=== PATIENT | female | born 1985 | race Two or more races ===

== ENCOUNTER 2019-11-07 20:43 | Observation (INO) | payer MEDICAID, OTHER ==
[~2019-11-07] VITALS: Ht 167.6 cm; Wt 81.6 kg
[2019-11-07] MEDS ORDERED: SODIUM CHLORIDE 0.9% 1,000 ML IV SCH ×2 (21:01→21:10)
[2019-11-07] MEDS ORDERED: PREN-96 PO (21:01)
[2019-11-07] MEDS ORDERED: LABETALOL HCL 5 MG/ML 4ML SYRINGE IV ONE ×2 (21:03→21:45)
[2019-11-07] MEDS ORDERED: MAGNESIUM SULFATE 40MG/ML 1,000 ML IV SCH (21:10)
[2019-11-07] MEDS ORDERED: MAGNESIUM SULFATE 100 ML IV ONE ×2 (21:15→21:17)
[2019-11-07] MEDS ORDERED: LABETALOL HCL 5 MG/ML 4ML SYRINGE IV PRN ×3 (21:15→21:30)
[2019-11-07] MEDS ORDERED: hydrALAZINE HCL 20 MG/ML VL IV PRN (21:15)
[2019-11-07 22:13] LABS: Basophils # (auto) 0 10 ^3/uL (0-0.2); Basophils % (auto) 0.1 % (0.0-2.0); Eosinophils # (auto) 0.1 10 ^3/uL (0-0.8); Eosinophils % (auto) 0.5 % (0.0-7.0); Hemoglobin 12.5 g/dL (12.2-16.2); Lymphocytes # (auto) 2.3 10 ^3/uL (0.4-5.4); Lymphocytes % (auto) 21.2 % (10.0-50.0); Mean Corpuscular Hemoglobin 32.6 pg (28.0-32.0); Mean Corpuscular Hgb Conc. 33.9 g/dL (32.0-36.0); Mean Corpuscular Volume 96.3 fL (80.0-100.0); Monocytes # (auto) 0.8 10 ^3/uL (0-1.3); Monocytes % (auto) 7.7 % (0.0-12.0); Neutrophils # (auto) 7.7 10 ^3/uL (1.6-8.6); Neutrophils % (auto) 70.5 % (37.0-80.0); Nucleated Red Blood Cells % 0.1 %; Platelet Count (auto) 110 10^3/uL (140-450); Red Blood Cells 3.84 10^6/uL (4.0-5.20)
[2019-11-07 22:30] LABS: Urine Bacteria FEW /hpf (None Seen); Urine Blood TRACE /uL (Negative); Urine Mucus FEW (None Seen); Urine Specific Gravity 1.021 (1.001-1.035); Urine WBC 1 /hpf (0 - 5)
[2019-11-07 22:32] LABS: Alcohol, Urine < 3.0 mg/dL (0-10); Amphetamine Screen, Urine NEGATIVE (NEGATIVE); Barbiturate Scree,Urine NEGATIVE (NEGATIVE); Benzodiazephine Screen, Urine NEGATIVE (NEGATIVE); Cannabinoid Screen, Urine NEGATIVE (NEGATIVE); Cocaine Screen, Urine NEGATIVE (NEGATIVE); Opiate Scree,Urine NEGATIVE (NEGATIVE); Phencyclidine Screen, Urine NEGATIVE (NEGATIVE)
[2019-11-07 22:32] LABS: Albumin 2.5 g/dL (3.4-5.0); Calcium 8.6 mg/dL (8.5-10.1); Potassium 3.9 mmol/L (3.5-5.1)
[2019-11-07 22:35] LABS: Protein, Urine 94.2 mg/dL (0.0-11.9)
[2019-11-07 22:35] LABS: BUN/Creatinine Ratio 22.8; Bilirubin, Total 0.4 mg/dL (0.2-1.0); Total Protein 6.5 g/dL (6.4-8.2); Uric Acid 4.4 mg/dL (2.6-6.0)
[2019-11-07 22:45] LABS: INR 0.96 (0.9-1.15); Partial Thromboplastin Time 25.9 sec (23.0-31.2)
[2019-11-08] MEDS ORDERED: ACETAMINOPHEN 325 MG TAB PO ONE (01:15)
[2019-11-08] MEDS ORDERED: LABETALOL HCL 5 MG/ML 4ML SYRINGE IV PRN (06:45)
== END 2019-11-08 09:22 | disposition short-term general hospital (02) ==
LOC: LDRP 20:43
PROVIDERS: ADMIT Obstetrics & Gynecology; ATTEND Obstetrics & Gynecology
DX: O13.3 Gestational [pregnancy-induced] hypertension without significant proteinuria, third trimester (principal); O26.893 Other specified pregnancy related conditions, third trimester; R10.13 Epigastric pain; O24.415 Gestational diabetes mellitus in pregnancy, controlled by oral hypoglycemic drugs; O62.9 Abnormality of forces of labor, unspecified; Z3A.49 Greater than 42 weeks gestation of pregnancy; Z79.899 Other long term (current) drug therapy
CPT/HCPCS: 36415; 59025; 76805; 76818; 80053; 80307; 81001; 81002; 82570; 82962; 83615; 83735; 84156; 84550; 85025; 85362; 85379; 85384; 85610; 85730; 86850; 86900; 86901; 96361; 96365; 96366; 96367; 96375; 96376; G0378; J3475; J3490; J7030; 96360; 96374

== ENCOUNTER 2022-05-29 20:49 | Emergency (ER) | payer MEDICAID ==
[~2022-05-29] VITALS: Ht 167.6 cm; Wt 82.3 kg
[~2022-05-29 20:49] MED LIST: PREN-96 PO
[2022-05-29 22:12] VITALS: BP 139/96
[2022-05-29] MEDS ORDERED: KETOROLAC TROMETH 60MG/2ML VIAL IM ONE (23:00)
[2022-05-29] MEDS ORDERED: ACETAMINOPHEN 500 MG TAB PO ONE (23:00)
[2022-05-29] MEDS ORDERED: LORATADINE 10 MG TAB PO ONE (23:00)
[2022-05-30] MEDS ORDERED: PREN-96 PO (00:06)
[2022-05-30] MEDS ORDERED: LORA10CA7 PO (01:12)
[2022-05-30] MEDS ORDERED: ACET-1158 PO (01:12)
[2022-05-30] MEDS ORDERED: BENZ100C19 PO (01:12)
== END 2022-05-30 01:58 | disposition home or self-care (01) ==
LOC: ER 20:49
DX: J06.9 Acute upper respiratory infection, unspecified (principal); Z20.822 Contact with and (suspected) exposure to COVID-19
CPT/HCPCS: 36415; 87426; 87804; 96372; 99283; J1885

== ENCOUNTER 2024-02-02 15:55 | Inpatient (IN) | payer MEDICAID ==
[~2024-02-02] VITALS: Ht 165.1 cm; Wt 81.4 kg
[~2024-02-02 15:55] MED LIST changes: +ACET500T58 PO; +BENZ100C19 PO; +LORA10CA PO
[2024-02-02 17:12] LABS: Basophils # (auto) 0 10 ^3/uL (0-0.2); Basophils % (auto) 0.4 % (0.0-2.0); Eosinophils # (auto) 0.1 10 ^3/uL (0-0.8); Eosinophils % (auto) 0.9 % (0.0-7.0); Hematocrit 45.6 % (36.0-46.0); Hemoglobin 15.5 g/dL (12.2-16.2); Lymphocytes % (auto) 43.1 % (10.0-50.0); Mean Corpuscular Hemoglobin 31.1 pg (28.0-32.0); Mean Corpuscular Hgb Conc. 33.9 g/dL (32.0-36.0); Mean Corpuscular Volume 91.5 fL (80.0-100.0); Monocytes # (auto) 0.4 10 ^3/uL (0-1.3); Monocytes % (auto) 6.3 % (0.0-12.0); Neutrophils # (auto) 3.4 10 ^3/uL (1.6-8.6); Neutrophils % (auto) 49.3 % (37.0-80.0); Platelet Count (auto) 271 10^3/uL (140-450); Red Blood Cells 4.98 10^6/uL (4.0-5.20); Red Cell Distribution Width 12.8 % (11.8-14.3); White Blood Cell 6.9 10^3/uL (4.4-10.8)
[2024-02-02 17:44] LABS: Alanine Aminotransferase 13 U/L (7-40); Albumin 4.6 g/dL (3.2-4.8); Alkaline Phosphatase 81 U/L (46-116); Anion Gap 5 (5-15); BUN/Creatinine Ratio 16.9 (10.0-20.0); Bilirubin, Total 0.4 mg/dL (0.2-1.0); Blood Urea Nitrogen 14 mg/dL (9-23); Calcium 9.8 mg/dL (8.7-10.4); Carbon Dioxide 28 mmol/L (20-31); Chloride 106 mmol/L (98-107); Potassium 4.1 mmol/L (3.5-5.1); Sodium 139 mmol/L (136-145); Total Protein 7.7 g/dL (5.7-8.2)
[2024-02-02 17:57] LABS: Aspartate Aminotransferase < 8 U/L (13-40); Glucose 114 mg/dL (74-106)
[2024-02-02 18:09] LABS: Urine Bacteria None Seen /hpf (None Seen)
[2024-02-02 18:17] LABS: Lipase 33 U/L (12-53)
[2024-02-02 18:34] LABS: Urine Blood 1+ /uL (Negative); Urine Clarity Clear (Clear); Urine Color Light-Yellow (Yellow); Urine Mucus FEW (None Seen); Urine Protein, UAD Negative (Negative); Urine Specific Gravity 1.029 (1.001-1.035); Urine Urobilinogen Normal (Negative); Urine WBC 2 /hpf (0 - 5)
--- NOTE | 2024-02-02 19:33 | DVH ---
Procedure: US GALLBLADDER 02/02/2024 07:05 PM Indication: ruq pain Comparison: None Technique: Grayscale and color images of the right upper quadrant were obtained. FINDINGS: ASCITES: None. LIVER: Liver measures 14.6 cm craniocaudal. Liver parenchyma is homogeneous in echotexture. No focal lesion is identified. No intrahepatic ductal dilatation. Normal directional flow is seen in the por jojo vein. GALLBLADDER: A large, 1.5 cm stone seen in gallbladder neck which appears mobile. No gallbladder wal l edema or pericholecystic fluid. Gallbladder fossa is tender to ultrasound probe. COMMON BILE DUCT: 0.4 cm in caliber, within normal limits. PANCREAS: Visualized portions are unremarkable. RIGHT KIDNEY: Normal in size, 12.3 cm in length without hydronephrosis. No focal lesions identified. AORTA, IVC: Visualized portions are unremarkable. OTHER: None. IMPRESSION: 1. Cholelithiasis and positive sonographic nelson's sign. No significant gallbladder wall edema. Rec ommend clinical and biochemical correlation to rule out cholecystitis. 2. Hepatic steatosis with areas of focal fatty sparing adjacent to the gallbladder fossa.
--- NOTE | 2024-02-02 20:59 | ED.PDOC ---
History of Present Illness HPI Comments 38F with several months of recurrent right upper quadrant pain acutely worse the last day. Pain associated with nausea and vomiting. Patient is unsure if it is worse after eating. Patient denies any fever chills diarrhea. Chief Complaint: Flank Pain Time Seen by MD: 16:09 Primary Care Provider: NONE Reviewed Notes: Nurses Notes Allergies: Coded Allergies: NO KNOWN ALLERGIES (Unverified , 11/07/19) Home Meds Active Scripts Benzonatate (Tessalon Perles) 100 Mg Cap, 1 CAP PO TID, #21 CAP Prov:JACKI SMITH PAC 05/30/22 Loratadine (Claritin) 10 Mg Cap, 10 MG PO DAILY for 14 Days, #14 CAP Prov:JACKI SMITH PAC 05/30/22 Acetaminophen (Acetaminophen) 500 Mg Tab, 500 MG PO Q4HP PRN, #30 TAB Prov:JACKI SMITH PAC 05/30/22 Vit W/ Ferrous Fumara ( One Daily) Daily Tab, 1 TAB PO DAILY, #90 TAB 3 Refills Prov:JACKI SMITH LOCATED WITHIN [facility] 05/30/22 Information Source: Patient Mode of Arrival: Ambulatory Past Medical History PAST MEDICAL HISTORY: Denies Surgical History: Denies all surgeries MICE RAISER History: No Pertinent MICE RAISER History Family History Family History: Reviewed,noncontributory to illness, No family hx of Cancer, No family hx of DM, No family hx of Heart ravinder, No family hx of HTN, No family hx ofKidney ravinder, No family hx of Liver ravinder, No family hx of Lung ravinder, No family hx of Stroke Social History Smoker: Non-Smoker Alcohol: Denies ETOH Use Drugs: Denies Drug Use Lives In: Home Gastrointestinal: reports: abdominal pain All Other Systems: Reviewed and Negative Physical Exam General Appearance: No Apparent Distress, Normal HEENT: Normal ENT Inspection, Pharynx Normal, TMs Normal Neck: Full Range of Motion, Non-Tender, Normal, Normal Inspection Respiratory: Chest Non-Tender, Lungs Clear, No Accessory Muscle Use, No Respiratory Distress, Normal Breath Sounds Cardiovascular: No Edema, No JVD, No Murmur, No Gallop, Normal Peripheral Pulse s, Regular Rate/Rhythm Breast Exam: Deferred Gastrointestinal: No Organomegaly, No Pulsatile Mass, Normal Bowel Sounds, Soft, Other (Right upper quadrant tenderness to palpation) Genitalia: Deferred Pelvic: Deferred Rectal: Deferred Extremities: No calf tenderness, Normal capillary refill, Normal inspection, Normal range of motion, Non-tender, No pedal edema Musculoskeletal : Apperance: Normal Neurologic: Alert, lint cleaner II-XII nml as Tested, No Motor Deficits, Normal Affect, Normal Mood, No Sensory Deficits Cerebellar Function: Normal Reflexes: Normal Skin: Dry, Normal Color, Warm Lymphatic: No Adenopathy Was a procedure done? Was a procedure done?: No Differential Dx Considerations may include: Cholecystitis, renal colic, musculoskeletal strain X-Ray, Labs, Meds, VS Vital Signs Date Time Temp Pulse Resp B/P (MAP) Pulse Ox O2 Delivery O2 Flow Rate FiO2 02/02/24 16:10 98.5 98 18 180/108 (132) 98 181/94 (123) Lab Test 02/02/24 18:08 02/02/24 16:41 Range/Units Urine Color Light-yellow Yellow Urine Clarity Clear Clear Urine pH 6.0 5.0-9.0 Urine Specific [place] 1.029 1.001-1.035 Urine Protein Negative Negative Urine Ketones Negative Negative Urine Blood 1+ H Negative /uL Urine Nitrite Negative Negative Urine Bilirubin Negative Negative Urine Urobilinogen Normal Negative mg/dL Urine Leukocyte Esterase Negative Negative /uL Urine RBC 7 0 - 4 /hpf Urine WBC 2 0 - 5 /hpf Urine Squamous Epithelial Cells Few <5 /hpf Urine Bacteria None seen None Seen /hpf Urine Mucus Few None Seen Urine Glucose Normal Normal mg/dL Urine Test Negative Negative White Blood Count 6.9 4.4-10.8 10^3/uL Red Blood Count 4.98 4.0-5.20 10^6/uL Hemoglobin 15.5 12.2-16.2 g/dL Hematocrit 45.6 36.0-46.0 % Mean Corpuscular Volume 91.5 80.0-100.0 fL Mean Corpuscular Hemoglobin 31.1 28.0-32.0 pg Mean Corpuscular Hemoglobin Concent 33.9 32.0-36.0 g/dL Red Cell Distribution Width 12.8 11.8-14.3 % Platelet Count 271 140-450 10^3/uL Mean Platelet Volume 8.3 6.9-10.8 fL Neutrophils (%) (Auto) 49.3 37.0-80.0 % Lymphocytes (%) (Auto) 43.1 10.0-50.0 % Monocytes (%) (Auto) 6.3 0.0-12.0 % Eosinophils (%) (Auto) 0.9 0.0-7.0 % Basophils (%) (Auto) 0.4 0.0-2.0 % Neutrophils # (Auto) 3.4 1.6-8.6 10 ^3/uL Lymphocytes # (Auto) 3.0 0.4-5.4 10 ^3/uL Monocytes # (Auto) 0.4 0-1.3 10 ^3/uL Eosinophils # (Auto) 0.1 0-0.8 10 ^3/uL Basophils # (Auto) 0 0-0.2 10 ^3/uL Nucleated Red Blood Cells 0.0 % Sodium Level 139 136-145 mmol/L Potassium Level 4.1 3.5-5.1 mmol/L Chloride Level 106 98-107 mmol/L Carbon Dioxide Level 28 20-31 mmol/L Anion Gap 5 5-15 Blood Urea Nitrogen 14 9-23 mg/dL Creatinine 0.83 0.550-1.02 mg/dL Glomerular Filtration Rate Calc 91 >90 mL/min BUN/Creatinine Ratio 16.9 10.0-20.0 Serum Glucose 114 H 74-106 mg/dL Calcium Level 9.8 8.7-10.4 mg/dL Total Bilirubin 0.4 0.2-1.0 mg/dL Aspartate Amino Transferase (AST) < 8 L 13-40 U/L Alanine Aminotransferase (ALT) 13 7-40 U/L Alkaline Phosphatase 81 46-116 U/L Total Protein 7.7 5.7-8.2 g/dL Albumin 4.6 3.2-4.8 g/dL Lipase 33 12-53 U/L Time of 1ST Reevaluation: 20:58 Reevaluation 1ST: Improved Patient Education/Counseling: Diagnosis, Treatment Family Education/Counseling: No Family Present Departure 1 Departure Time of Disposition: 20:58 (Patient presented with abdominal pain that was concerning for possible appendicits, gastritis, cholecystitis, colitis, gastroenteritis, sbo, or orther possible surgical emergency. Data: 1. I ordered and reviewed the result of at least 3 labs including a CBC, BMP, and Urinalysis. 2. I independently interpreted the following tests: Ultrasound is concerning for cholelithiasis and possible cholecystitis .Risk:This patient has a high risk of morbidity due to further diagnostic testing or treatment and may suffer from an acute abdominal process disorder. Workup reveals concern for cholecystitis and patient should be admitted for further workup. and possible expert consultation. ) Impression: Primary Impression: Cholelithiasis Qualified Codes: K80.00 - Calculus of gallbladder with acute cholecystitis without obstruction Additional Impression: Right upper quadrant pain Disposition: ADMITTED INPATIENT Admit to: Med Surg Condition: Serious Critical Care Note Critical Care Time?: Yes Critical care comment: Intractable abdominal pain Authorized and Performed by: Chapo Cooper MD Total critical care time: Approximately 42 minutes Due to a high probability of clinically significant, life threatening deterioration, the patient required my highest level of preparedness to intervene emergently and I personally spent this critical care time directly and personally managing the patient. This critical care time included obtaining a history; examining the patient; pulse oximetry; ordering and review of studies; arranging urgent treatment with development of a management plan; evaluation of patient's response to treatment; frequent reassessment; and, discussions with other providers. This critical care time was performed to assess and manage the high probability of imminent, life-threatening deterioration that could result in multi-organ failure. It was exclusive of separately billable procedures and treating other patients and teaching time. Please see my other sections and the rest of the note for further information on patient assessment and treatment. Stability Stability form required: No Heart Score Heart Score: Heart Score Response (Comments) Value History N/A 0 EKG N/A 0 Age N/A 0 Risk Factors N/A 0 Troponin N/A 0 Total 0 CHAPO COOPER MD Feb 02, 2024 20:59
[2024-02-02] MEDS ORDERED: MAALOX PLUS or MAALOX 30 ML PO PRN (22:00)
[2024-02-02] MEDS ORDERED: DOCUSATE SOD 100 MG CAP PO PRN (22:00)
[2024-02-02] MEDS ORDERED: LORazepam 0.5 MG TAB PO PRN (22:00)
[2024-02-02] MEDS ORDERED: ONDANSETRON HCL 4 MG/2 ML VIAL IV PRN (22:00)
[2024-02-02] MEDS ORDERED: DEXTROSE (50%) 50ML SYRG IV PRN (22:00)
[2024-02-02] MEDS ORDERED: MORPHINE SULFATE INJ 2 MG/ml SYRG IV PRN (22:00)
[2024-02-02] MEDS ORDERED: TEMAZEPAM 15 MG CAP PO PRN (22:00)
[2024-02-02] MEDS ORDERED: HYDROcodone-ACET 5/325MG TAB PO PRN (22:00)
[2024-02-02] MEDS: SODIUM CHLORIDE 0.9% 1,000 ML IV ONE (22:07)
[2024-02-02] MEDS: ONDANSETRON HCL 4 MG/2 ML VIAL IV ONE (22:13)
[2024-02-02] MEDS: MORPHINE SULFATE 4 MG/ML SYR/VIAL IV ONE (22:13)
--- NOTE | 2024-02-02 22:23 | DVHHP2 ---
History of Present Illness Reason for Visit: Right upper quadrant pain History of Present Illness 38-year-old obese female with right upper quadrant pain pain has been recurrent multiple times on outpatient basis for months with the pain being the worst it has ever been last night patient stated she was having associated nausea vomiting and pain that was worsening after eating patient denies having any other medical history but continues to have severe upper quadrant flank pain patient was recommended for inpatient admission and evaluation from surgery Review of Systems Constitutional: No: Fever, Chills, Sweats, Weakness, Malaise, Other Eyes: No: Pain, Vision change, Conjunctivae inflammation, Eyelid inflammation, Other, Redness ENT: No: Ear pain, Ear discharge, Nose pain, Nose discharge, Nose congestion, Mouth pain, Mouth swelling, Throat pain, Throat swelling, Other Respiratory: No: Cough, Dry, Shortness of breath, SOB with excertion, Wheezing, Hemoptysis, Pleuritic Pain, Sputum, Wheezing, Other Cardiovascular: No: Chest Pain, Palpitations, Orthopnea, Paroxysmal Noc. Dyspnea, Edema, Lt Headedness, Other Gastrointestinal: Abdominal Pain; No: Nausea, Vomiting, Diarrhea, Constipation, Melena, Hematochezia, Other Genitourinary: No Dysuria, No Frequency, No Incontinence, No Hematuria, No Retention, No Other Skin: No: Rash, Lesions, Jaundice, Bruising, Other Neurological: No: Weakness, Numbness, Incoordination, Change in speech, Confusion, Seizures, Other Allergies: Coded Allergies: NO KNOWN ALLERGIES (Unverified , 11/07/19) Exam Vital Signs Vital Signs Date Time Temp Pulse Resp B/P (MAP) Pulse Ox O2 Delivery O2 Flow Rate FiO2 02/02/24 21:10 Room Air* 0 21 02/02/24 21:05 98.0 76 14 171/100 (123) 96 98.0 General Appearance: Alert, Oriented X3, Cooperative, mild distress HEENT: Atraumatic, PERRLA Respiratory: Clear to auscultation, Normal air movement Cardiovascular: Regular rate, Normal S1, Normal S2 Abdominal: Normal bowel sounds, Soft, No tenderness Extremities: No clubbing, No cyanosis Skin: No rashes, No breakdown Neuro: Normal gait, Normal speech Psych/Mental Status: Mood NL Labs/Xrays Labs Test 02/02/24 18:08 02/02/24 16:41 Range/Units Urine Color Light-yellow Yellow Urine Clarity Clear Clear Urine pH 6.0 5.0-9.0 Urine Specific [place] 1.029 1.001-1.035 Urine Protein Negative Negative Urine Ketones Negative Negative Urine Blood 1+ H Negative /uL Urine Nitrite Negative Negative Urine Bilirubin Negative Negative Urine Urobilinogen Normal Negative mg/dL Urine Leukocyte Esterase Negative Negative /uL Urine RBC 7 0 - 4 /hpf Urine WBC 2 0 - 5 /hpf Urine Squamous Epithelial Cells Few <5 /hpf Urine Bacteria None seen None Seen /hpf Urine Mucus Few None Seen Urine Glucose Normal Normal mg/dL Urine Test Negative Negative White Blood Count 6.9 4.4-10.8 10^3/uL Red Blood Count 4.98 4.0-5.20 10^6/uL Hemoglobin 15.5 12.2-16.2 g/dL Hematocrit 45.6 36.0-46.0 % Mean Corpuscular Volume 91.5 80.0-100.0 fL Mean Corpuscular Hemoglobin 31.1 28.0-32.0 pg Mean Corpuscular Hemoglobin Concent 33.9 32.0-36.0 g/dL Red Cell Distribution Width 12.8 11.8-14.3 % Platelet Count 271 140-450 10^3/uL Mean Platelet Volume 8.3 6.9-10.8 fL Neutrophils (%) (Auto) 49.3 37.0-80.0 % Lymphocytes (%) (Auto) 43.1 10.0-50.0 % Monocytes (%) (Auto) 6.3 0.0-12.0 % Eosinophils (%) (Auto) 0.9 0.0-7.0 % Basophils (%) (Auto) 0.4 0.0-2.0 % Neutrophils # (Auto) 3.4 1.6-8.6 10 ^3/uL Lymphocytes # (Auto) 3.0 0.4-5.4 10 ^3/uL Monocytes # (Auto) 0.4 0-1.3 10 ^3/uL Eosinophils # (Auto) 0.1 0-0.8 10 ^3/uL Basophils # (Auto) 0 0-0.2 10 ^3/uL Nucleated Red Blood Cells 0.0 % Sodium Level 139 136-145 mmol/L Potassium Level 4.1 3.5-5.1 mmol/L Chloride Level 106 98-107 mmol/L Carbon Dioxide Level 28 20-31 mmol/L Anion Gap 5 5-15 Blood Urea Nitrogen 14 9-23 mg/dL Creatinine 0.83 0.550-1.02 mg/dL Glomerular Filtration Rate Calc 91 >90 mL/min BUN/Creatinine Ratio 16.9 10.0-20.0 Serum Glucose 114 H 74-106 mg/dL Calcium Level 9.8 8.7-10.4 mg/dL Total Bilirubin 0.4 0.2-1.0 mg/dL Aspartate Amino Transferase (AST) < 8 L 13-40 U/L Alanine Aminotransferase (ALT) 13 7-40 U/L Alkaline Phosphatase 81 46-116 U/L Total Protein 7.7 5.7-8.2 g/dL Albumin 4.6 3.2-4.8 g/dL Lipase 33 12-53 U/L Assessment/Plan Assessment/Plan Admit to [facility] Suspected cholelithiasis Patient with acute upper abdominal pain Surgical consult P.r.n. pain management Elevated glucose with no history of stated diabetes Insulin sliding scale mild coverage IV antibiotics with Flagyl for proper coverage Plan discussed with: Patient My Orders Orders - KARLI GREEN MD Procedure Category Date Status Time Metronidazole PHA 02/02/24 In Process 500mg/100ml (Flagyl 22:00 * Surgical Consult CONS 02/02/24 Transmitted Glucose Blood PHA 02/03/24 In Process (Accu-Chek Comfort 00:00 Insulin R (Human) PHA 02/03/24 In Process (Insulin R) 00:00 Dextrose 50% Syringe PHA 02/02/24 In Process 22:00 Admit ADMIT 02/02/24 Transmitted 21:48 Code Status CODE 02/02/24 Transmitted 21:48 Vital Signs [facility] 02/02/24 In Process 21:48 Review Orders With ARNOLD 02/02/24 In Process Adm. 21:48 Npo (Nothing By DIET 02/03/24 Transmitted Mouth) Diet Breakfast Sodium Chloride 0.9% PHA 02/02/24 In Process 22:00 Lorazepam Tablet PHA 02/02/24 In Process (Ativan Tablet) 22:00 Alum & Mag PHA 02/02/24 In Process Hydrox-Simethicone 22:00 Docusate Sodium PHA 02/02/24 In Process Capsule (Colace 22:00 Acetaminophen Tablet PHA 02/02/24 In Process (Tylenol Tablet) 22:00 Temazepam (Restoril) PHA 02/02/24 In Process 22:00 Notify Md Of Changes ARNOLD 02/02/24 In Process From Base 21:48 Advance Directive ARNOLD 02/02/24 In Process 21:48 Basic Metabolic Panel LAB 02/03/24 Verified 04:00 Urinalysis LAB 02/02/24 Logged 21:48 Complete Blood Count LAB 02/03/24 Verified 04:00 Patient Condition ORDERS 02/02/24 Transmitted 21:48 Allergies ARNOLD 02/02/24 In Process 21:48 Hydrocodone-Acet PHA 02/02/24 In Process 5/325mg Tab ([place] 22:00 Ondansetron Hcl PHA 02/02/24 In Process (Zofran) 22:00 Morphine Sulfate PHA 02/02/24 In Process Injection 22:00 Notify Md Of Changes ARNOLD 02/02/24 In Process From Base 21:48 Oxygen By Nasal RT 02/02/24 Transmitted Cannula 21:48 Problem List: (1) Right upper quadrant pain (2) Cholelithiasis Date of Service: Feb 02, 2024 Billing Provider: KARLI GREEN MD Common Visit Codes: [id number] INP/OBS CARE (HIGH) KARIL GREEN MD Feb 02, 2024 22:23
[2024-02-02] MEDS: SODIUM CHLORIDE 0.9% 1,000 ML IV SCH (22:27)
[2024-02-02] MEDS: metroNIDAZOLE 500MG/100ML 100 ML IV SCH (22:28)
[2024-02-02] MEDS: ACCU-CHEK COMFORT CURVE STRIP VI SCH (23:41)
[2024-02-02] MEDS: InsuLIN REG 1unit/0.01ml Soln (100units/ml) SC SCH (23:41)
[2024-02-03 03:49] VITALS: RESP 14; O2SAT 96
[2024-02-03 05:00] VITALS: BP 150/93; PULSE 63; RESP 14; TEMP 98.7; O2SAT 96
[2024-02-03 07:15] LABS: Anion Gap 5 (5-15); Carbon Dioxide 30 mmol/L (20-31); Chloride 107 mmol/L (98-107); Potassium 3.8 mmol/L (3.5-5.1); Sodium 142 mmol/L (136-145)
[2024-02-03 07:16] LABS: Calcium 9.1 mg/dL (8.7-10.4)
[2024-02-03 07:20] LABS: Basophils # (auto) 0 10 ^3/uL (0-0.2); Basophils % (auto) 0.5 % (0.0-2.0); Eosinophils # (auto) 0 10 ^3/uL (0-0.8); Eosinophils % (auto) 0.7 % (0.0-7.0); Hematocrit 40.5 % (36.0-46.0); Lymphocytes # (auto) 2.2 10 ^3/uL (0.4-5.4); Lymphocytes % (auto) 43.3 % (10.0-50.0); Mean Corpuscular Hemoglobin 31.3 pg (28.0-32.0); Mean Corpuscular Hgb Conc. 34.7 g/dL (32.0-36.0); Mean Corpuscular Volume 90.2 fL (80.0-100.0); Monocytes # (auto) 0.4 10 ^3/uL (0-1.3); Monocytes % (auto) 7.6 % (0.0-12.0); Neutrophils # (auto) 2.5 10 ^3/uL (1.6-8.6); Neutrophils % (auto) 47.9 % (37.0-80.0); Platelet Count (auto) 240 10^3/uL (140-450); Red Blood Cells 4.48 10^6/uL (4.0-5.20); Red Cell Distribution Width 12.7 % (11.8-14.3); White Blood Cell 5.1 10^3/uL (4.4-10.8)
[2024-02-03 07:21] LABS: BUN/Creatinine Ratio 12.7 (10.0-20.0); Blood Urea Nitrogen 9 mg/dL (9-23)
[2024-02-03 07:25] LABS: Glucose 109 mg/dL (74-106)
--- NOTE | 2024-02-03 07:34 | DVHINCON2 ---
Date of service: Feb 03, 2024 Allergies: Coded Allergies: NO KNOWN ALLERGIES (Unverified , 11/07/19) Home Meds Active Scripts Benzonatate (Tessalon Perles) 100 Mg Cap, 1 CAP PO TID, #21 CAP Prov:JACKI SMITH [facility] 05/30/22 Loratadine (Claritin) 10 Mg Cap, 10 MG PO DAILY for 14 Days, #14 CAP Prov:JACKI SMITH [facility] 05/30/22 Acetaminophen (Acetaminophen) 500 Mg Tab, 500 MG PO Q4HP PRN, #30 TAB Prov:JACKI SMITH [facility] 05/30/22 Vit W/ Ferrous Fumara ( One Daily) Daily Tab, 1 TAB PO DAILY, #90 TAB 3 Refills Prov:JACKI SMITH [facility] 05/30/22 Current Medications Current Medications Medications (Trade) Dose Ordered Sig/Elen Route PRN Reason Start Time Stop Time Status Last Admin Metronidazole 100 ml @ 100 mls/hr Q8HR IV 02/02/24 22:00 02/03/24 05:25 Diagnostic Test (Pha) (Accu-Chek Comfort Curve T) 1 strip Q6HR 02/03/24 00:00 02/03/24 06:20 Insulin Human Regular (InsuLIN R) Q6HR SC 02/03/24 00:00 Dextrose 50 ml UD PRN IV Blood Sugar LESS THAN 60 02/02/24 22:00 Sodium Chloride 1,000 ml @ 100 mls/hr Q10H IV 02/02/24 22:00 02/02/24 22:27 Lorazepam (Ativan Tablet) 0.5 mg Q6HP PRN PO ANXIETY 02/02/24 22:00 Al Hydrox/Mg Hydrox/Simethicone (Maalox Plus) 30 ml Q6HP PRN PO FOR STOMACH DISTRESS 02/02/24 22:00 Docusate Sodium (Colace Capsule) 100 mg BIDPRN PRN PO FOR CONSTIPATION 02/02/24 22:00 Acetaminophen (Tylenol Tablet) 650 mg Q6HP PRN PO PAIN SCALE 1-3 OR TEMP>100.4 02/02/24 22:00 Temazepam (Restoril) 15 mg QHSP PRN PO FOR INSOMNIA 02/02/24 22:00 Acetaminophen/ Hydrocodone Bitart ([place] 5/325MG Tab) 1 tab Q4HP PRN PO MODERATE PAIN (4-6 PAIN SCALE) 02/02/24 22:00 Ondansetron HCl (Zofran) 4 mg Q4HP PRN IV NAUSEA / VOMITING 02/02/24 22:00 Morphine Sulfate 2 mg Q4HPRN PRN IV SEVERE PAIN (7-10 PAIN SCALE) 02/02/24 22:00 Vital Signs Vital Signs Date Time Temp Pulse Resp B/P (MAP) Pulse Ox O2 Delivery O2 Flow Rate FiO2 02/03/24 05:00 98.7 63 14 150/93 (112) 96 98.7 02/03/24 03:49 Room Air* 0 21 Labs/Diagnostic Data Labs Test 02/03/24 06:22 02/03/24 06:19 02/02/24 18:08 02/02/24 16:41 Range/Units White Blood Count 5.1 # 4.4-10.8 10^3/uL Red Blood Count 4.48 4.0-5.20 10^6/uL Hemoglobin 14.0 12.2-16.2 g/dL Hematocrit 40.5 # 36.0-46.0 % Mean Corpuscular Volume 90.2 80.0-100.0 fL Mean Corpuscular Hemoglobin 31.3 28.0-32.0 pg Mean Corpuscular Hemoglobin Concent 34.7 32.0-36.0 g/dL Red Cell Distribution Width 12.7 11.8-14.3 % Platelet Count 240 140-450 10^3/uL Mean Platelet Volume 8.4 6.9-10.8 fL Neutrophils (%) (Auto) 47.9 37.0-80.0 % Lymphocytes (%) (Auto) 43.3 10.0-50.0 % Monocytes (%) (Auto) 7.6 0.0-12.0 % Eosinophils (%) (Auto) 0.7 0.0-7.0 % Basophils (%) (Auto) 0.5 0.0-2.0 % Neutrophils # (Auto) 2.5 1.6-8.6 10 ^3/uL Lymphocytes # (Auto) 2.2 0.4-5.4 10 ^3/uL Monocytes # (Auto) 0.4 0-1.3 10 ^3/uL Eosinophils # (Auto) 0 0-0.8 10 ^3/uL Basophils # (Auto) 0 0-0.2 10 ^3/uL Nucleated Red Blood Cells 0.0 % Sodium Level 142 136-145 mmol/L Potassium Level 3.8 3.5-5.1 mmol/L Chloride Level 107 98-107 mmol/L Carbon Dioxide Level 30 20-31 mmol/L Anion Gap 5 5-15 Blood Urea Nitrogen 9 9-23 mg/dL Creatinine 0.71 0.550-1.02 mg/dL Glomerular Filtration Rate Calc 110 >90 mL/min BUN/Creatinine Ratio 12.7 10.0-20.0 Serum Glucose 109 H 74-106 mg/dL Calcium Level 9.1 8.7-10.4 mg/dL POC Glucose 113 H 70-106 mg/dl Urine Color Light-yellow Yellow Urine Clarity Clear Clear Urine pH 6.0 5.0-9.0 Urine Specific [place] 1.029 1.001-1.035 Urine Protein Negative Negative Urine Ketones Negative Negative Urine Blood 1+ H Negative /uL Urine Nitrite Negative Negative Urine Bilirubin Negative Negative Urine Urobilinogen Normal Negative mg/dL Urine Leukocyte Esterase Negative Negative /uL Urine RBC 7 0 - 4 /hpf Urine WBC 2 0 - 5 /hpf Urine Squamous Epithelial Cells Few <5 /hpf Urine Bacteria None seen None Seen /hpf Urine Mucus Few None Seen Urine Glucose Normal Normal mg/dL Urine Test Negative Negative Total Bilirubin 0.4 0.2-1.0 mg/dL Aspartate Amino Transferase (AST) < 8 L 13-40 U/L Alanine Aminotransferase (ALT) 13 7-40 U/L Alkaline Phosphatase 81 46-116 U/L Total Protein 7.7 5.7-8.2 g/dL Albumin 4.6 3.2-4.8 g/dL Lipase 33 12-53 U/L Assessment 38 YEAR OLD FEMALE WITH RUQ ABDOMINAL "DISCOMFORT", HAS GALLSTONES, NO FEVER, NO NAUSEA, NO ABDOMINAL TENDERNESS, NORMAL WBC, NORMAL LIVER ENZYMES. AFTER THOROUGH DISCUSSION AND EXPLANATION PATIENT DECIDED TO GO HOME AND COME TO MY OFFICE AFTER THE HOLIDAYS TO HAVE THE OPERATION DONE ON OUTPATIENT BASIS. I EXPLAINED TO HER THAT THE PAIN MAY COME BACK AND GET WORSE IN WHICH CASE SHE CAN COME BACK TO THE E.R. . Plan discussed with: Patient LOLLY CERON MD Feb 03, 2024 07:34
[2024-02-03 08:00] VITALS: PULSE 65; RESP 18; O2SAT 98
[2024-02-03 09:00] VITALS: BP 110/71; PULSE 65; RESP 18; TEMP 98.4; O2SAT 98
[2024-02-03] MEDS: ACETAMINOPHEN 325 MG TAB PO PRN (12:43)
[2024-02-03 13:00] VITALS: BP 106/64; PULSE 69; RESP 17; TEMP 98; O2SAT 96
--- NOTE | 2024-02-03 14:25 | DVHDS2 ---
Discharge Summary Date of Admission Feb 02, 2024 at 21:48 Date of Discharge: Feb 03, 2024 Labs/Diagnostic Data: Laboratory Results Test 02/03/24 06:22 02/03/24 06:19 02/02/24 18:08 02/02/24 16:41 White Blood Count 5.1 10^3/uL (4.4-10.8) Red Blood Count 4.48 10^6/uL (4.0-5.20) Hemoglobin 14.0 g/dL (12.2-16.2) Hematocrit 40.5 % (36.0-46.0) Mean Corpuscular Volume 90.2 fL (80.0-100.0) Mean Corpuscular Hemoglobin 31.3 pg (28.0-32.0) Mean Corpuscular Hemoglobin Concent 34.7 g/dL (32.0-36.0) Red Cell Distribution Width 12.7 % (11.8-14.3) Platelet Count 240 10^3/uL (140-450) Mean Platelet Volume 8.4 fL (6.9-10.8) Neutrophils (%) (Auto) 47.9 % (37.0-80.0) Lymphocytes (%) (Auto) 43.3 % (10.0-50.0) Monocytes (%) (Auto) 7.6 % (0.0-12.0) Eosinophils (%) (Auto) 0.7 % (0.0-7.0) Basophils (%) (Auto) 0.5 % (0.0-2.0) Neutrophils # (Auto) 2.5 10 ^3/uL (1.6-8.6) Lymphocytes # (Auto) 2.2 10 ^3/uL (0.4-5.4) Monocytes # (Auto) 0.4 10 ^3/uL (0-1.3) Eosinophils # (Auto) 0 10 ^3/uL (0-0.8) Basophils # (Auto) 0 10 ^3/uL (0-0.2) Nucleated Red Blood Cells 0.0 % Sodium Level 142 mmol/L (136-145) Potassium Level 3.8 mmol/L (3.5-5.1) Chloride Level 107 mmol/L (98-107) Carbon Dioxide Level 30 mmol/L (20-31) Anion Gap 5 (5-15) Blood Urea Nitrogen 9 mg/dL (9-23) Creatinine 0.71 mg/dL (0.550-1.02) Glomerular Filtration Rate Calc 110 mL/min (>90) BUN/Creatinine Ratio 12.7 (10.0-20.0) Serum Glucose 109 mg/dL (74-106) Calcium Level 9.1 mg/dL (8.7-10.4) POC Glucose 113 mg/dl (70-106) Urine Color Light-yellow (Yellow) Urine Clarity Clear (Clear) Urine pH 6.0 (5.0-9.0) Urine Specific [place] 1.029 (1.001-1.035) Urine Protein Negative (Negative) Urine Ketones Negative (Negative) Urine Blood 1+ /uL (Negative) Urine Nitrite Negative (Negative) Urine Bilirubin Negative (Negative) Urine Urobilinogen Normal mg/dL (Negative) Urine Leukocyte Esterase Negative /uL (Negative) Urine RBC 7 /hpf (0 - 4) Urine WBC 2 /hpf (0 - 5) Urine Squamous Epithelial Cells Few /hpf (<5) Urine Bacteria None seen /hpf (None Seen) Urine Mucus Few (None Seen) Urine Glucose Normal mg/dL (Normal) Urine Test Negative (Negative) Total Bilirubin 0.4 mg/dL (0.2-1.0) Aspartate Amino Transferase (AST) < 8 U/L (13-40) Alanine Aminotransferase (ALT) 13 U/L (7-40) Alkaline Phosphatase 81 U/L (46-116) Total Protein 7.7 g/dL (5.7-8.2) Albumin 4.6 g/dL (3.2-4.8) Lipase 33 U/L (12-53) Other Laboratory Tests 02/03/24 06:22 Brief Hx & Hospital Course: 38 F admitted for abdominal pain, found to have colelithiasis, seen by surgery, patient prefer to do surgery after holidays, stable to [place] home, in the mean time lifestyle modification. Condition at Discharge: Good Final Diagnosis/Problems List colelithiasis Discharge Disposition: Home Discharge Instruct/Medications Diet: See Comment Diet comment: low fat, small frequent feeding Activity: No Restrictions, As Tolerated Follow Up/Referral: surgery outpatient Medications: n/a 45 Discharge Statement: "Patient was advised to return to the ER or call 911 if any headaches, dizziness, shortness of breath, chest pain, abdominal pain, bleeding, fevers, or worsening of medical condition. Patient was counseled about treatment plan, medications, possible side effects, patientverbalized understanding. All questions were answered to the best of my ability. This discharge took greater then 30 minutes in planning, reviewing documentation, counseling the patient, and discussing with other team members." ASSESSMENT ASSESSMENT Assessment colelithiasis without cholecystitis Date of Service: Feb 03, 2024 Billing Provider: KASEY ROTHMAN MD Common Visit Codes: [id number]/[id number] DISCH DAY >30min KASEY ROTHMAN MD Feb 03, 2024 14:25
[2024-02-03 15:46] VITALS: BP 110/71; PULSE 65; RESP 18; TEMP 98.4; O2SAT 98
== END 2024-02-03 16:48 | disposition home or self-care (01) ==
LOC: ER 15:55 → OVERFLOW 21:48 → WEST WING 02-03 03:32
PROVIDERS: ADMIT Hospitalist; ATTEND Student in an Organized Health Care Education/Training Program
DX: K80.20 Calculus of gallbladder without cholecystitis without obstruction (principal); E66.9 Obesity, unspecified; Z79.1 Long term (current) use of non-steroidal anti-inflammatories (NSAID); Z79.899 Other long term (current) drug therapy; Z68.29 Body mass index [BMI] 29.0-29.9, adult
CPT/HCPCS: 36415; 76705; 80048; 80053; 81001; 81025; 82962; 83690; 85025; 99291; G0378; J1815; J2405; J3490